=== PATIENT | female | born 1980 | race Caucasian/White ===

== ENCOUNTER 2019-03-30 21:35 | Emergency (ER) | payer MEDICAID ==
[~2019-03-30] VITALS: Ht 162.6 cm; Wt 87.0 kg
[2019-03-31 01:21] VITALS: BP 123/75
== END 2019-03-31 01:22 | disposition home or self-care (01) ==
LOC: ER 21:35
DX: M94.0 Chondrocostal junction syndrome [Tietze] (principal); Z90.710 Acquired absence of both cervix and uterus
CPT/HCPCS: 71045; 93005; 99283